=== PATIENT | female | born 1960 | race Two or more races ===

== ENCOUNTER 2021-07-15 19:59 | Emergency (ER) | payer OTHER ==
[~2021-07-15] VITALS: Ht 152.4 cm; Wt 60.3 kg
[2021-07-15] MEDS ORDERED: ROSUVASTATIN CA40 MG PO (20:45)
[2021-07-15] MEDS ORDERED: GLIMEPIRIDE4 M1 PO (20:45)
== END 2021-07-15 23:48 | disposition home or self-care (01) ==
LOC: ER 19:59
DX: R10.9 Unspecified abdominal pain (principal); M41.9 Scoliosis, unspecified; E11.9 Type 2 diabetes mellitus without complications

== ENCOUNTER 2023-05-07 07:22 | Outpatient (CLI) | payer OTHER ==
[~2023-05-07 07:22] MED LIST: GLIMEPIRIDE4 M1 PO; ROSUVASTATIN CA40 MG PO
== END 2023-05-07 07:27 | disposition home or self-care (01) ==
LOC: SONOGRAMA 07:22
PROVIDERS: ATTEND Internal Medicine Cardiovascular Disease
DX: R10.9 Unspecified abdominal pain (principal); M99.05 Segmental and somatic dysfunction of pelvic region; M46.1 Sacroiliitis, not elsewhere classified; M53.3 Sacrococcygeal disorders, not elsewhere classified; M12.9 Arthropathy, unspecified

== ENCOUNTER 2024-03-22 10:02 | Emergency (ER) | payer OTHER ==
[~2024-03-22] VITALS: Ht 152.4 cm; Wt 61.2 kg
[2024-03-22] MEDS ORDERED: MEPERIDINE HCL/PF 50 MG/ML VIAL IM ONE (11:45)
[2024-03-22] MEDS ORDERED: FAMOtidine 10 MG/ML (4ML VIAL) IV PUSH ONE (11:45)
[2024-03-22] MEDS ORDERED: DICYCLOMINE HCL 10 MG CAPSULE PO ONE (11:50)
[2024-03-22] MEDS ORDERED: FAMOTIDINE/PF 20 MG/2 ML VIAL ONE (11:51)
[2024-03-22] MEDS ORDERED: METHYLPREDNISOLONE SOD SUCC 40 MG VIAL IV ONE (12:00)
[2024-03-22] MEDS ORDERED: DICYCLOMINE HCL 20 MG TABLET PO ONE (12:00)
[2024-03-22 12:22] LABS: HEMATOCRIT 45.1 % (36.0-45.00); HEMOGLOBIN 15.6 g/dL (12.0-15.00); MEAN CELL VOLUME 88.7 fL (80.00-100.00); MEAN CORPUSCULAR HEMOGLOBIN 30.8 pg (27.00-32.0); MEAN CORPUSCULAR HGB CONC 34.7 g/dl (32.0-36.0); PLATELET COUNT 169 K/uL (150-450); RED BLOOD COUNT 5.08 M/uL (4.00-6.00); RED CELL DISTRIBUTION WIDTH 13.9 % (11.5-14.5)
[2024-03-22] MEDS ORDERED: METHYLPREDNISOLONE SOD SUCC 125 MG VIAL ONE (12:22)
[2024-03-22 12:38] LABS: INR 1.09; PARTIAL THROMBOPLASTIN TIME 30.4 SECONDS (22.0-34.0); PROTHROMBIN TIME 11.8 SECONDS (9.0-11.5)
[2024-03-22 12:44] LABS: BILIRUBIN TOTAL 0.43 mg/dL (0.3-1.2); CALCIUM 9.3 mg/dL (8.5-10.1); CREATININE SERUM 0.58 mg/dL (0.55-1.02); GFR 105.34; GLOBULINA 3.7 G/DL (2.4-3.5); POTASSIUM 3.6 mEq/L (3.5-5.1); TOTAL PROTEIN 7.7 gm/dL (6.4-8.2)
[2024-03-22 15:20] LABS: PH,URINE 5.5 (5.0-8.0); URINE APPEARANCE Cloudy; URINE BILIRRUBIN Negative (NEGATIVE); URINE BLOOD Negative; URINE COLOR Yellow; URINE LEUKOCYTE Negative; URINE NITRATE Negative; URINE PROTEIN 30 (NEGATIVE); URINE UROBILINOGEN 0.2 E.U./dl
[2024-03-22 15:23] LABS: URINE BACTERIA 6211.7 uL (0.0-1933); URINE EPITHELIAL CELLS 90.2 uL (0.0-38.8); URINE RBC 3.6 uL (0.0-20.8); URINE WBC 41.6 uL (0.0-23.2)
[2024-03-22] MEDS ORDERED: KETOROLAC TROMETHAMINE 60 MG VIAL IM ONE ×2 (15:30→15:55)
[2024-03-22 15:46] LABS: URINE CAST 0.14 uL (0.0-1.40); URINE GLUCOSE >=1000 MG/DL (NEGATIVE); URINE KETONE 80 (NEGATIVE); URINE YEAST FEW /hpf
[2024-03-22 15:47] LABS: URINE MUCUS MODERATE
[2024-03-22] MEDS ORDERED: PROTONIX40 MG PO (15:53)
[2024-03-22] MEDS ORDERED: DICY20TA PO (15:53)
== END 2024-03-22 16:06 | disposition home or self-care (01) ==
LOC: ER 10:04
PROVIDERS: General Practice
DX: R10.11 Right upper quadrant pain (principal); R10.9 Unspecified abdominal pain; E11.9 Type 2 diabetes mellitus without complications

== ENCOUNTER → 2024-06-24 07:38 | Outpatient (CLI) | payer OTHER ==
[~2024-06-24 07:38] MED LIST changes: +DICY20TA PO; +PROTONIX40 MG PO
[2024-06-24 08:21] LABS: HEMATOCRIT 43.2 % (36.0-45.00); HEMOGLOBIN 14.9 g/dL (12.0-15.00); MEAN CELL VOLUME 90.8 fL (80.00-100.00); MEAN CORPUSCULAR HEMOGLOBIN 31.3 pg (27.00-32.0); MEAN CORPUSCULAR HGB CONC 34.5 g/dl (32.0-36.0); PLATELET COUNT 260 K/uL (150-450); RED BLOOD COUNT 4.75 M/uL (4.00-6.00); RED CELL DISTRIBUTION WIDTH 13.9 % (11.5-14.5)
[2024-06-24 08:24] LABS: URINE APPEARANCE Clear; URINE BILIRRUBIN Negative (NEGATIVE); URINE BLOOD Negative; URINE COLOR Yellow; URINE KETONE Trace (NEGATIVE); URINE LEUKOCYTE Negative; URINE NITRATE Negative; URINE PROTEIN Negative (NEGATIVE); URINE UROBILINOGEN 0.2 E.U./dl
[2024-06-24 08:25] LABS: URINE BACTERIA 723.2 uL (0.0-1933); URINE EPITHELIAL CELLS 20.2 uL (0.0-38.8); URINE WBC 9.4 uL (0.0-23.2)
[2024-06-24 09:08] LABS: URINE CAST 0.44 uL (0.0-1.40); URINE GLUCOSE >=1000 MG/DL (NEGATIVE)
[2024-06-24 09:20] LABS: ALBUMIN 3.9 gm/dL (3.4-5.0); BILIRUBIN TOTAL 0.48 mg/dL (0.3-1.2); BILIRUBIN,CONJUGATED 0.14 mg/dL (0.0-0.2); BILIRUBIN,UNCONJUGATED 0.34 mg/dL (0.0-0.6); CALCIUM 9.5 mg/dL (8.5-10.1); CREATININE SERUM 0.47 mg/dL (0.55-1.02); GFR 134.27; POTASSIUM 4.39 mEq/L (3.5-5.1); T4 TOTAL 7.91 UG/DL (4.8-13.9); TOTAL PROTEIN 6.9 gm/dL (6.4-8.2); TSH 1.39 uIU/mL (0.358-3.74)
[2024-06-24 09:34] LABS: CHOL HDL RATIO 4.5 (0-5.0)
[2024-06-24 12:07] LABS: T3 TOTAL 1.15 ng/ml (0.846-2.02); VITAMIN D3 25 HYDROXY 19.55 ng/ml (30-120)
== END | disposition home or self-care (01) ==
LOC: LAB 07:38
PROVIDERS: ATTEND Internal Medicine Cardiovascular Disease
DX: E03.9 Hypothyroidism, unspecified (principal); I10 Essential (primary) hypertension; E11.9 Type 2 diabetes mellitus without complications; E78.2 Mixed hyperlipidemia; E55.9 Vitamin D deficiency, unspecified; M81.0 Age-related osteoporosis without current pathological fracture; R10.13 Epigastric pain; R11.0 Nausea; E11.8 Type 2 diabetes mellitus with unspecified complications

== ENCOUNTER → 2024-06-24 08:04 | Outpatient (CLI) | payer OTHER | END | disposition home or self-care (01) | LOC: NUCLEAR 05-13 10:00 | PROVIDERS: ATTEND Internal Medicine Cardiovascular Disease | DX: K81.9 Cholecystitis, unspecified (principal) ==

== ENCOUNTER 2024-07-06 07:33 | Outpatient (CLI) | payer OTHER | END 2024-07-06 07:51 | disposition home or self-care (01) | LOC: TOM 07:33 | PROVIDERS: ATTEND Internal Medicine Gastroenterology | DX: E11.8 Type 2 diabetes mellitus with unspecified complications (principal); R11.0 Nausea; R10.13 Epigastric pain ==